=== PATIENT | female | born 1975 | race Caucasian/White ===

== ENCOUNTER 2016-05-06 08:19 | Emergency (ER) | payer OTHER ==
[2016-05-06] MEDS ORDERED: DILAUDID 1 MG/ML AMP ONE (13:03)
[2016-05-06] MEDS ORDERED: DIAZEPAM 5 MG TAB ONE (13:03)
== END 2016-05-06 14:59 | disposition home or self-care (01) ==
LOC: ER 08:19
DX: G43.909 Migraine, unspecified, not intractable, without status migrainosus (principal); M79.1 Myalgia; I10 Essential (primary) hypertension
CPT/HCPCS: 70450; 71010; 72125; 93005; 96372